=== PATIENT | female | born 1975 | race Caucasian/White ===

== ENCOUNTER 2018-10-18 19:34 | Emergency (ER) | payer OTHER ==
[2018-10-18 19:44] VITALS: PULSE 75; TEMP 98.3; BMI 29.2
--- NOTE | 2018-10-18 19:46 | PDOC ---
Rapid Medical Evaluation Chief Complaint: Pain Time Seen by Provider: 10/18/18 19:40 Medical Evaluation: Allergies Allergy/AdvReac Type Severity Reaction Status Date / Time No Known Allergies Allergy Verified 08/08/11 17:36 10/18/18 19:41 I have performed a brief in-person evaluation of this patient. The patient presents with a chief complaint of: ACUTE ONSET OF LUQ PAIN/ left flank pain ~ 1 HOUR ago, Cholecystect x 10years ago. denies fevers, + N/ V - no recent travel, no tainted food Pertinent physical exam findings: pale/ vomiting / I have ordered the following: CBC/ CMP/ amylase/ lipase/ ua The patient will proceed to the ED for further evaluation. 10/18/18 19:44 Discharge Disposition - Diagnosis Abdominal pain - Referrals - Patient Instructions - Post Discharge Activity
--- NOTE | 2018-10-18 21:45 | PDOC ---
History of Present Illness - General Chief Complaint: Pain, Acute Stated Complaint: BACK PAIN Time Seen by Provider: 10/18/18 19:40 History Source: Patient Exam Limitations: No Limitations - History of Present Illness Initial Comments: 10/18/18 22:10 43 year old female with no PMH presented to ED for left sided flank pain since 1800 today. Pt admitted to nausea, vomiting 5 times today - denied blood. Pt denied fever, chills, diarrhea, constipation, dysuria. Allergies: NKDA Past History - Past Medical History Allergies/Adverse Reactions: Allergies Allergy/AdvReac Type Severity Reaction Status Date / Time No Known Allergies Allergy Verified 10/18/18 19:44 Home Medications: Ambulatory Orders Ferrous Sulfate [Feosol] 325 mg PO BID #0 ud 08/11/11 Ferrous Sulfate [Feosol] 325 mg PO BID #1 tablet 08/11/11 Ibuprofen [Motrin -] 600 mg PO Q4H PRN #1 tablet 08/11/11 Vitamins (Sjr) - 1 tab PO DAILY #1 tablet 08/11/11 Ibuprofen 600 mg PO TID PRN #15 tablet 10/18/18 Sulfamethoxazole/Trimethoprim [Bactrim Ds -] 1 tab PO BID #20 tablet 10/18/18 Tamsulosin HCl [Flomax] 0.4 mg PO DAILY #7 capsule 10/18/18 Asthma: No Cancer: No Cardiac Disorders: No COPD: No Diabetes: No HTN: No Seizures: No Thyroid Disease: No - Surgical History Cholecystectomy: Yes - Suicide/Smoking/Psychosocial Hx Smoking History: Never smoked Have you smoked in the past 12 months: No Hx Alcohol Use: No Drug/Substance Use Hx: No Hx Substance Use Treatment: No Review of Systems - Review of Systems Able to Perform ROS?: Yes Comments:: 10/18/18 22:14 General: denied fever, chills, generalized weakness. HEENT: denied sore throat, rhinorrhea, ear pain. Heart: denied chest pain, palpitations, syncope, diaphoresis. Respiratory: denied shortness of breath, cough, sputum production, hemoptysis. Abdomen: admitted to abdominal pain, nausea, vomiting. denied diarrhea, constipation, blood in stool. : admitted to flank pain. denied dysuria, increased urinary frequency, hematuria, urinary incontinence. Back: denied back pain. Musculoskeletal: denied joint pain, muscle pain, joint swelling. Neurological: denied headache, dizziness, numbness, tingling, weakness. Skin: denied rash, laceration, abrasion. *Physical Exam - Vital Signs Last Vital Signs Temp Pulse Resp BP Pulse Ox 98.3 F 75 18 167/96 100 10/18/18 19:42 10/18/18 19:42 10/18/18 19:42 10/18/18 19:42 10/18/18 19:42 - Physical Exam Comments: 10/18/18 22:15 Constitutional: Well-nourished, Well-developed, appearing stated age. HEENT: head is normocephalic, atraumatic. EOMI. PERRLA. Neck: supple. Full ROM. Heart: regular rhythm. no murmurs, rubs or gallops. Lungs: clear to auscultation bilaterally. no crackles, rhonchi or wheezing. no stridor. Abdomen: soft, flat. tenderness to palpation up LUQ. normal bowel sounds. no rebound, guarding, masses. Back: negative CVA tenderness bilaterally. Extremities: peripheral pulses intact. no lower extremity edema. Neurological: CN 2-12 grossly intact. moves all four extremities. Psych: awake, alert, oriented x3. follows commands. answers questions appropriately. ED Treatment Course - LABORATORY CBC & Chemistry Diagram: 10/18/18 21:45 10/18/18 21:45 Medical Decision Making - Medical Decision Making 10/18/18 22:15 43 year old female with no PMH presented to ED for left sided flank pain associated with nausea/vomiting. Initial Vital Signs Temp Pulse Resp BP Pulse Ox 98.3 F 75 18 167/96 100 10/18/18 19:42 10/18/18 19:42 10/18/18 19:42 10/18/18 19:42 10/18/18 19:42 Afebrile. No tachycardia. No tachypnea. Mild hypertension. No hypoxia on room air. Labs ordered: CBC, CMP, lipase, UA, urine test Imaging ordered: CT abdomen/pelvis noncontrast Medications ordered: tylenol IV, pepcid, maalox, zofran 10/18/18 22:26 CBC WBC 15.8 K/mm3 (4.0-10.0) H 10/18/18 21:45 RBC 4.50 M/mm3 (3.60-5.2) 10/18/18 21:45 Hgb 12.9 GM/dL (10.7-15.3) 10/18/18 21:45 Hct 39.4 % (32.4-45.2) D 10/18/18 21:45 MCV 87.6 fl (80-96) 10/18/18 21:45 MCH 28.7 pg (25.7-33.7) 10/18/18 21:45 MCHC 32.7 g/dl (32.0-36.0) 10/18/18 21:45 RDW 13.5 % (11.6-15.6) 10/18/18 21:45 Plt Count 370 K/MM3 (134-434) D 10/18/18 21:45 MPV 7.9 fl (7.5-11.1) 10/18/18 21:45 Absolute Neuts (auto) 14.0 K/mm3 (1.5-8.0) H 10/18/18 21:45 Neutrophils % 88.3 % (42.8-82.8) H 10/18/18 21:45 Lymphocytes % 8.1 % (8-40) 10/18/18 21:45 Monocytes % 3.4 % (3.8-10.2) L 10/18/18 21:45 Eosinophils % 0.1 % (0-4.5) 10/18/18 21:45 Basophils % 0.1 % (0-2.0) D 10/18/18 21:45 Nucleated RBC % 0 % (0-0) 10/18/18 21:45 Leukocytosis with left shift. No anemia. CMP Sodium 138 mmol/L (136-145) 10/18/18 21:45 Potassium 4.2 mmol/L (3.5-5.1) 10/18/18 21:45 Chloride 103 mmol/L (98-107) 10/18/18 21:45 Carbon Dioxide 26 mmol/L (21-32) 10/18/18 21:45 Anion Gap 9 MMOL/L (8-16) 10/18/18 21:45 BUN 16 mg/dL (7-18) 10/18/18 21:45 Creatinine 0.8 mg/dL (0.55-1.3) 10/18/18 21:45 Est GFR (CKD-EPI)AfAm 106.13 10/18/18 21:45 Est GFR (CKD-EPI)NonAf 91.57 10/18/18 21:45 Random Glucose 139 mg/dL (74-106) H 10/18/18 21:45 Calcium 9.3 mg/dL (8.5-10.1) 10/18/18 21:45 Total Bilirubin 0.4 mg/dL (0.2-1) 10/18/18 21:45 AST 19 U/L (15-37) 10/18/18 21:45 ALT 34 U/L (13-61) 10/18/18 21:45 Alkaline Phosphatase 71 U/L (45-117) 10/18/18 21:45 Total Protein 8.0 g/dl (6.4-8.2) 10/18/18 21:45 Albumin 4.4 g/dl (3.4-5.0) 10/18/18 21:45 Total Amylase 85 U/L (25-115) 10/18/18 21:45 Lipase 131 U/L (73-393) 10/18/18 21:45 No electrolyte abnormalities. No DASHAWN. No transaminitis. Normal lipase. Urine Test Results Urine Color Yellow 10/18/18 21:30 Urine Appearance Cloudy 10/18/18 21:30 Urine pH 5.5 (5.0-8.0) 10/18/18 21:30 Ur Specific [place] 1.029 (1.010-1.035) 10/18/18 21:30 Urine Protein 1+ (NEGATIVE) H 10/18/18 21:30 Urine Glucose (UA) Negative (NEGATIVE) 10/18/18 21:30 Urine Ketones Negative (NEGATIVE) 10/18/18 21:30 Urine Blood Trace (NEGATIVE) 10/18/18 21:30 Urine Nitrite Negative (NEGATIVE) 10/18/18 21:30 Urine Bilirubin Negative (NEGATIVE) 10/18/18 21:30 Ur Leukocyte Esterase Negative (NEGATIVE) 10/18/18 21:30 Positive epithelial cells Positive bacteria Indeterminent UTI Trace blood. Urine test negative. 10/18/18 22:46 After receiving Zofran IV pt developed hives to left arm. Pt denied SOB, throat swelling. Medications ordered: Benadryl 25 mg IV 10/18/18 23:38 CT report: 3 mm left ureteral calculus at the level of the mid pelvis with resultant minimal to mild hydronephrosis. Medications ordered: Flomax Urology paged. 10/18/18 23:56 Dr. Lin spoke with Dr. Reveles, he recommended antibiotic coverage, outpatient treatment, with strict return precautions for fever/chills. Medications ordered: Bactrim Pt discharged. Discharge Medications: Bactrim, Ibuprofen 600 mg TID PRN pain, Floman 0.4 mg daily x7 days *DC/Admit/Observation/Transfer Diagnosis at time of Disposition: Kidney stone - Discharge Dispostion Condition at time of disposition: Improved Decision to Admit order: No - Prescriptions Prescriptions: Ibuprofen 600 mg PO TID PRN #15 tablet PRN Reason: Pain Sulfamethoxazole/Trimethoprim [Bactrim Ds -] 1 tab PO BID #20 tablet Tamsulosin HCl [Flomax] 0.4 mg PO DAILY #7 capsule - Referrals Referrals: Brennen Lin MD [Staff Physician] - - Patient Instructions Printed Discharge Instructions: DI for Kidney Stones Additional Instructions: You were seen today for flank pain. Your lab work showed an elevated white blood cell count, which can be due to inflammation or infection. Your Cat-Scan showed a 3 mm kidney stone in the left ureter. I have sent a prescription to your pharmacy for Flomax to help flush out the stone. Take as advised on label. I have sent a prescription to your pharmacy for Ibuprofen, take as needed for pain. I have sent a prescription to your pharmacy for Bactrim, an antibiotic, to treat a possible infection. It is very important that you return to the Emergency Department IMMEDIATELY if you develop a fever/chills/sweats. I spoke with our Urologist, who you can follow up with outpatient. I have included a referral for him. Follow up within 4 days. Your care is not complete until you follow up. Follow up with your primary care doctor within 3 days. Bring all paperwork given to you today to your appointment. Your care is not complete until you follow up. Return to the Emergency Department for increasing pain despite ibuprofen use, vomiting, vomiting blood, blood in urine, fever, chills, burning with urination , chest pain, shortness of breath or any other new, worsening or concerning symptoms. [place] TRANSLATION PROVIDED VIA [employer] TRANSLATE Te vieron hoy por dolor en el flanco. Blair trabajo de laboratorio mostr un recuento elevado de glbulos blancos, que puede deberse a toshia inflamacin o infeccin. Blair Cat-Scan mostr un clculo renal de 3 mm en el urter wilbur. He enviado toshia receta a blair farmacia para que Flomax ayude a eliminar la rachel. Vivian sakshi se aconseja en la etiqueta. He enviado toshia receta a blair farmacia para el ibuprofeno, tome segn sea necesario para el dolor. He enviado toshia receta a blair farmacia para Bactrim, un antibitico, para tratar toshia posible infeccin. Es muy importante que regrese al Departamento de Emergencias INMEDIATAMENTE si tiene fiebre / escalofros / sudores. Habl con nuestro urlogo, a quien puede mandie seguimiento con un paciente ambulatorio. He incluido toshia referencia para l. Seguimiento en 4 polanco. Blair atencin no est completa hasta que edison un seguimiento. Edison un seguimiento con blair mdico de atencin primaria dentro de los 3 polanco. Lleve todos los documentos que se le entreguen hoy a blair sylvain. Blair atencin no est completa hasta que edison un seguimiento. Regrese al Departamento de Emergencias para aumentar el dolor a pesar del uso de ibuprofeno, vmitos, vmitos con koki, koki en la orina, fiebre, escalofros, ardor al orinar, dolor en el pecho, falta de aliento o cualquier otro sntoma nuevo, que empeore o relacionado con los sntomas. Print Language: [place] - Post Discharge Activity Forms/Work/School Notes: Back to Work
[2018-10-18 21:53] LABS: EPI CELLS 16.1 /HPF (0-5/HPF); PH,URINE 5.5 (5.0-8.0); URINE APPEARANCE CLOUDY; URINE BACTERIA 253.9 /hpf (NEGATIVE); URINE BILIRUBIN NEGATIVE (NEGATIVE); URINE CASTS 11 /lpf (0-8); URINE COLOR YELLOW; URINE GLUCOSE (UA) NEGATIVE (NEGATIVE); URINE KETONE NEGATIVE (NEGATIVE); URINE LEUK ESTERASE NEGATIVE (NEGATIVE); URINE NITRITE NEGATIVE (NEGATIVE); URINE PROTEIN 1+ (NEGATIVE); URINE RBC 6 /hpf (0-4); URINE WBC 7 /hpf (0-5)
[2018-10-18 22:02] LABS: BASO % 0.1 % (0-2.0); EOS % 0.1 % (0-4.5); HEMATOCRIT 39.4 % (32.4-45.2); HEMOGLOBIN 12.9 GM/dL (10.7-15.3); LYMPH % 8.1 % (8-40); MCH 28.7 pg (25.7-33.7); MCHC 32.7 g/dl (32.0-36.0); MEAN CELL VOLUME 87.6 fl (80-96); MEAN PLT VOLUME 7.9 fl (7.5-11.1); MONO % 3.4 % (3.8-10.2); NEUT % 88.3 % (42.8-82.8); PLATELET COUNT 370 K/MM3 (134-434); RDW 13.5 % (11.6-15.6); WHITE BLOOD COUNT 15.8 K/mm3 (4.0-10.0)
[2018-10-18] MEDS ORDERED: MAG HYDROX/AL HYDROX/SIMETH 30 ML UNIT-DOSE CUP PO ONE (22:12)
[2018-10-18] MEDS ORDERED: ONDANSETRON 4 MG/2 ML VIAL IVPUSH ONE (22:12)
[2018-10-18] MEDS ORDERED: FAMOTIDINE 20 MG/50 ML IVPB 20 MG/50 ML MG IVPB ONE ×2 (22:12→22:18)
[2018-10-18] MEDS ORDERED: ACETAMINOPHEN 1000 MG/100 ML VIAL (NON FORMULARY) IVPB ONE (22:14)
[2018-10-18] MEDS ORDERED: ONDANSETRON 4 MG/2 ML VIAL ONE (22:18)
[2018-10-18] MEDS ORDERED: ACETAMINOPHEN INJECTION 100 ML IVPB ONE (22:18)
[2018-10-18] MEDS ORDERED: MAG HYDROX/AL HYDROX/SIMETH 30 ML UNIT-DOSE CUP ONE (22:18)
[2018-10-18 22:21] LABS: ALBUMIN 4.4 g/dl (3.4-5.0); BILIRUBIN,TOTAL 0.4 mg/dL (0.2-1); CALCIUM 9.3 mg/dL (8.5-10.1); CREATININE 0.8 mg/dL (0.55-1.3); POTASSIUM 4.2 mmol/L (3.5-5.1)
[2018-10-18] MEDS ORDERED: TAMSULOSIN HCL 0.4 MG CAP PO ONE (23:37)
[2018-10-18] MEDS ORDERED: TAMSULOSIN HCL 0.4 MG CAP ONE (23:42)
[2018-10-19] MEDS ORDERED: SULFAMETHOXAZOLE/TRIMETHOPRIM 800MG/160MG D.S. TABLET PO ONE (00:03)
[2018-10-19] MEDS ORDERED: SULFAMETHOXAZOLE/TRIMETHOPRIM 800MG/160MG D.S. TABLET ONE (00:10)
[2018-10-19 00:27] VITALS: BP 158/92
--- NOTE | 2018-10-19 10:59 | EKG ---
Test Reason : Blood Pressure : / mmHG Vent. Rate : 078 BPM Atrial Rate : 078 BPM P-R Int : 180 ms QRS Dur : 100 ms QT Int : 384 ms P-R-T Axes : 025 054 035 degrees QTc Int : 437 ms NORMAL SINUS RHYTHM NORMAL ECG NO PREVIOUS ECGS AVAILABLE Confirmed by TATI PASCUAL MD ([id number]) on 10/19/2018 10:58:44 AM Referred By: Confirmed By:TATI PASCUAL MD
--- NOTE | 2018-10-19 15:19 | PDOC ---
Documentation entered by Chris Pavon SCRIBE, acting as scribe for Joaquina Reveles MD. Joaquina Reveles MD: This documentation has been prepared by the Librado ocampo Daniel, SCRIBE, under my direction and personally reviewed by me in its entirety. I confirm that the documentation accurately reflects all work, treatment, procedures, and medical decision making performed by me. Attending Attestation - Resident Resident Name: Keyla Allison - ED Attending Attestation I have performed the following: I have examined & evaluated the patient, The case was reviewed & discussed with the resident, I agree w/resident's findings & plan, Exceptions are as noted - HPI HPI: 10/18/18 22:12 The patient is a 43 year old female with no past medical history here today for evaluation of left flank pain. The patient reports that her left flank pain came on suddenly about 1 hour ago and states that it radiates to her left upper quadrant and groin. She also notes 5 episodes of non bloody and non bilious vomiting. Denies dysuria, hematuria, frequency. Denies vaginal discharge or bleeding. Patient denies headache, lightheadedness. Denies fever, chills. Denies chest pain, shortness of breath. Denies nausea, diarrhea. Allergies: NKA - Physicial Exam PE: 10/19/18 00:59 Gen: well appearing, AOx3, NAD CV: RRR, no MRG PULM: CTAB, no WRC ABD: soft, NTND, no rebound or guarding : +L CVAT EXT: WWP, FROM Neuro: CN intact, normal gait, equal stregnth and sesnation b/l SKIN: no rashes - Medical Decision Making 10/19/18 00:02 43yo F presents to the ED with L flank pain a/w vomiting. No fevers or systemic signs of infection UA with trace blood, 7 WBCs, bacteria but many epithelials as well Labs with leukocytosis to 16 - stress response vs infectious? Creatinine wnl CTAP with 3mm L ureteral obstructing stone In light of leukocytosis, bacteria in urine, and obstructing stone, case was discussed with Dr. Mckeon from urology. States that in absence of fever, UA likely contaminated and leukocytosis likely reactionary as opposed to infectious. Recommends PO abx, UCx (pending) and discharge with outpt f/u so long as pain is well controlled. Pt is feeling much better at this time. Discussed strict return precautions Pt is tolerating PO Clincially stable for DC home
== END 2018-10-19 00:27 | disposition home or self-care (01) ==
LOC: JER 19:34
PROC: 3E033GC Introduction of Other Therapeutic Substance into Peripheral Vein, Percutaneous Approach (ICD-10-PCS; principal; 2018-10-18)
PROC: 3E033GC Introduction of Other Therapeutic Substance into Peripheral Vein, Percutaneous Approach (ICD-10-PCS; 2018-10-18)
PROC: 3E033GC Introduction of Other Therapeutic Substance into Peripheral Vein, Percutaneous Approach (ICD-10-PCS; 2018-10-18)
PROC: 3E033NZ Introduction of Analgesics, Hypnotics, Sedatives into Peripheral Vein, Percutaneous Approach (ICD-10-PCS; 2018-10-18)
DX: N13.2 Hydronephrosis with renal and ureteral calculous obstruction (principal); L50.0 Allergic urticaria; T45.0X5A Adverse effect of antiallergic and antiemetic drugs, initial encounter; Y92.238 Other place in hospital as the place of occurrence of the external cause
CPT/HCPCS: 36415; 74176-TC; 80053; 81003; 82150; 83690; 84703; 85025; 87086; 93005; 93010; 99282-25; J0131